=== PATIENT | female | born 1965 | race Caucasian/White ===

== ENCOUNTER 2016-10-21 11:35 | Emergency (ER) | payer OTHER ==
[~2016-10-21] VITALS: Ht 156.2 cm; Wt 77.6 kg
[~2016-10-21 11:35] MED LIST: CETI10TA22 PO; IBUP200C9 PO; OMEP40CA5 PO
[2016-10-21 11:48] VITALS: BP 122/67
[2016-10-21 14:04] LABS: OBC FLU VALID
[2016-10-21] MEDS ORDERED: PRED20TA PO (14:25)
[2016-10-21] MEDS ORDERED: FLUT9.9S NS (14:25)
--- NOTE | 2016-10-21 14:26 | PHYS DOC ---
Past Medical History Past Medical History: GERD, Other Additional Past Medical Histor: IBS, spastic colon Past Surgical History: Tonsillectomy, Other Additional Past Surgical Histo: uterine ablation, urethra enlarged Additional Information: nonsmoker Alcohol Use: Rarely Drug Use: None Adult General Chief Complaint Chief Complaint: SORE THROAT [facility] HPI Patient is a 51 year old female who presents with sore throat for 3 days. She also reports nasal congestion and nonproductive cough. She denies fever or pain. She's been taking ibuprofen, cough, Zyrtec, and Mucinex at home. She did receive a flu shot this year. Her PCP is Dr. Cristian Ricketts. Review of Systems Review of Systems Constitutional: Denies fever or chills. [] Eyes: Denies change in visual acuity, redness, or eye pain. [] HENT: Denies ear pain. Reports sore throat and nasal congestion. Respiratory: Denies shortness of breath. Reports nonproductive cough. Musculoskeletal: Denies back pain or joint pain. [] Integument: Denies rash or skin lesions. [] Neurologic: Denies headache, focal weakness or sensory changes. Reports dizziness with bending over. All systems reviewed and negative unless otherwise stated in the HPI. Allergies Allergies Allergies Coded Allergies Type Severity Reaction Last Updated Verified sulfamethoxazole Allergy Intermediate Broke out with hives & had to have injection 06/07/15 Yes trimethoprim Allergy Intermediate 06/07/15 Yes chlorpheniramine Allergy Unknown Nose bleed & passed out 06/07/15 Yes phenylpropanolamine Allergy Unknown Nose bleed & passed out 06/07/15 Yes Physical Exam Physical Exam Constitutional: Well developed, well nourished, no acute distress, non-toxic appearance. [] HENT: Normocephalic, atraumatic, bilateral external ears normal, oropharynx moist, no oral exudates, nose normal. Bilateral TMs without erythema or bulging. There is no posterior pharyngeal erythema or tonsillar edema. Bilateral nasal turbinates are swollen and erythematous. Eyes: PERRLA, EOMI, conjunctiva normal, no discharge. [] Neck: Normal range of motion, no tenderness, supple, no stridor. [] Cardiovascular: Heart rate regular rhythm, no murmur [] Lungs & Thorax: Bilateral breath sounds clear to auscultation without wheezes, rales, or rhonchi. Skin: Warm, dry, no erythema, no rash. [] Neurologic: Alert and oriented X 3, normal motor function, normal sensory function, no focal deficits noted. [] Psychologic: Affect normal, judgement normal, mood normal. [] Current Patient Data Vital Signs Vital Signs Date Time Temp Pulse Resp B/P Pulse Ox O2 Delivery O2 Flow Rate FiO2 10/21/16 11:48 98.7 93 16 122/67 97 Room Air 98.7 Lab Values Laboratory Tests Test 10/21/16 13:26 Influenza Type A Antigen Negative (NEGATIVE) Influenza Type B Antigen Negative (NEGATIVE) Rapid strep negative EKG EKG [] Radiology/Procedures Radiology/Procedures [] Course & Med Decision Making Course & Med Decision Making Pertinent Labs and Imaging studies reviewed. (See chart for details) [] Dragon Disclaimer Dragon Disclaimer This electronic medical record was generated, in whole or in part, using a voice recognition dictation system. Departure Departure Impression: Primary Impression: URI (upper respiratory infection) Disposition: HOME, SELF-CARE Condition: STABLE Referrals: CRISTIAN RICKETTS (PCP) Patient Instructions: Upper Respiratory Infection, Adult, [id number] Additional Instructions: Your flu and strep tests were negative. Please take all the prescribed steroid pills, even if you are feeling better. Please use the prescribed nasal spray on a daily basis to help decrease nasal congestion and drainage. Please drink lots of fluids to stay hydrated and get plenty of rest. Return to the emergency department if you have any new or concerning symptoms. Scripts Fluticasone Propionate (Flonase Allergy Relief)9.9 Ml [place].susp2 Sprays NS DAILY #1 BOTTLE Prov:ANGELIQUE GERMAN 10/21/16 Prednisone 20 Mg [id number] Mg PO DAILY 5 Days Prov:ANGELIQUE GERMAN 10/21/16 Problem Qualifiers Primary Impression: URI (upper respiratory infection) URI type: unspecified viral URI Qualified Code: J06.9 - Acute upper respiratory infection, unspecified ANGELIQUE GERMAN Oct 21, 2016 14:26
[2016-10-22 07:35] LABS: NEGATIVE OBC STREP NEG; POSITIVE OBC STREP POS
== END 2016-10-21 14:31 | disposition home or self-care (01) ==
LOC: ER 11:35
DX: J06.9 Acute upper respiratory infection, unspecified (principal); Z90.89 Acquired absence of other organs; K58.9 Irritable bowel syndrome, unspecified; K21.9 Gastro-esophageal reflux disease without esophagitis; Z88.2 Allergy status to sulfonamides; Z88.8 Allergy status to other drugs, medicaments and biological substances
CPT/HCPCS: 87070; 87804; 87880; 99284